=== PATIENT | female | born 1950 ===

== ENCOUNTER 2018-12-20 10:43 | Emergency (ER) | payer MEDICARE, OTHER ==
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
--- NOTE | 2018-12-21 20:50 | RADIOLOGY REPORT ---
EXAM: RIBS, RIGHT W/PA CHEST HISTORY: FALL LAST NIGHT, MID RIB PAIN. TECHNIQUE: PA chest and AP and oblique views of the right ribs. COMPARISON: None. FINDINGS: Cardiac silhouette within normal size limits. Surgical clips in the lower neck/upper mediastinal region. No focal pulmonary consolidation. No pleural effusion or pneumothorax. No definite rib fracture is seen. IMPRESSION: 1. NO ACUTE LUNG FINDINGS. 2. NO DEFINITE RIGHT RIB FRACTURE. J[facility]BER: [id number] [facility]
--- NOTE | 2018-12-21 20:53 | RADIOLOGY REPORT ---
EXAM: SHOULDER, RIGHT HISTORY: FALL, SHOULDER PAIN. TECHNIQUE: Three views of the right shoulder. COMPARISON: None. FINDINGS: Minimally displaced, likely minimally comminuted fracture of the proximal humerus greater tuberosity Approximately 1 mm lateral displacement. No additional fracture is seen. No dislocation. Glenohumeral arthrosis with inferior osteophytes. IMPRESSION: ACUTE MINIMALLY DISPLACED FRACTURE OF THE PROXIMAL HUMERUS GREATER TUBEROSITY JOB [facility]BER: [id number] [facility]
== END 2018-12-20 12:19 | disposition home or self-care (01) ==
LOC: ER 10:43
DX: S42.251A Displaced fracture of greater tuberosity of right humerus, initial encounter for closed fracture (principal); X50.0XXA Overexertion from strenuous movement or load, initial encounter; Y93.K9 Activity, other involving animal care; I10 Essential (primary) hypertension; F17.210 Nicotine dependence, cigarettes, uncomplicated
CPT/HCPCS: 99283; 99284